=== PATIENT | female | born 1975 | race Caucasian/White ===

== ENCOUNTER 2023-09-27 10:01 | Day surgery (SDC) | payer BC ==
[2023-08-29 11:54] VITALS: BMI 21.4
[2023-09-27 12:13] VITALS: TEMP 97.8
[2023-09-27 13:03] VITALS: BP 112/67; PULSE 65; RESP 18
== END 2023-09-27 12:45 | disposition home or self-care (01) ==
LOC: FASU-ENDO 10:01
PROVIDERS: ATTEND Internal Medicine Gastroenterology
PROC: 0DBN8ZX Excision of Sigmoid Colon, Via Natural or Artificial Opening Endoscopic, Diagnostic (ICD-10-PCS; principal; 2023-09-27 11:32)
DX: Z12.11 Encounter for screening for malignant neoplasm of colon (principal); D12.5 Benign neoplasm of sigmoid colon; K64.1 Second degree hemorrhoids; K64.8 Other hemorrhoids
CPT/HCPCS: 81025; 88305-TC